=== PATIENT | female | born 1990 | race Two or more races ===

== ENCOUNTER 2017-12-06 15:20 | Outpatient (CLI) | payer OTHER | END 2017-12-06 15:30 | disposition home or self-care (01) | LOC: RAD 15:20 | DX: C50.911 Malignant neoplasm of unspecified site of right female breast (principal) ==

== ENCOUNTER 2017-12-23 06:29 | Inpatient (IN) | payer OTHER ==
[~2017-12-23] VITALS: Ht 160 cm; Wt 115.2 kg
[~2017-12-23 06:29] MED LIST: LOTREL 10-20 M1 EACH PO
== END 2017-12-24 13:15 | disposition home or self-care (01) | DRG 583 ==
LOC: CIR.AMB 06:29 → OB/GYN 17:30 → CIR.AMB 18:39 → OB/GYN 12-24 13:15
PROVIDERS: Plastic Surgery; Surgery
PROC: [UNRECOGNIZED PROCEDURE] (2017-12-23)
PROC: 0HTT0ZZ Resection of Right Breast, Open Approach (ICD-10-PCS; principal; 2017-12-23 11:30)
PROC: 0HHT0NZ Insertion of Tissue Expander into Right Breast, Open Approach (ICD-10-PCS; 2017-12-23 11:30)
DX: C50.011 Malignant neoplasm of nipple and areola, right female breast (principal); N62 Hypertrophy of breast; Z90.11 Acquired absence of right breast and nipple

== ENCOUNTER 2018-01-24 15:58 | Outpatient (CLI) | payer OTHER ==
[2018-02-02] MEDS ORDERED: LISINOPRIL-HCT1 EAC2 PO (12:30)
== END 2018-01-24 16:57 | disposition home or self-care (01) ==
LOC: EDBD 15:58 → NUCLEAR 15:58
DX: I87.2 Venous insufficiency (chronic) (peripheral) (principal)

== ENCOUNTER 2018-01-31 15:26 | Outpatient (CLI) | payer OTHER ==
[2018-02-02] MEDS ORDERED: LISINOPRIL-HCT1 EAC2 PO (12:30)
== END 2018-01-31 15:28 | disposition home or self-care (01) ==
LOC: EDBD 15:26 → EKG 15:26
DX: C50.911 Malignant neoplasm of unspecified site of right female breast (principal)

== ENCOUNTER 2018-01-31 15:53 | Outpatient (CLI) | payer OTHER ==
[2018-02-02] MEDS ORDERED: LISINOPRIL-HCT1 EAC2 PO (12:30)
== END 2018-01-31 15:55 | disposition home or self-care (01) ==
LOC: EDBD 15:53 → RAD 15:53
DX: S73.102A Unspecified sprain of left hip, initial encounter (principal)

== ENCOUNTER 2018-02-06 06:56 | Day surgery (SDC) | payer OTHER ==
[~2018-02-06 06:56] MED LIST changes: +LISINOPRIL-HCT1 EAC2 PO
== END 2018-02-06 14:40 | disposition home or self-care (01) ==
LOC: CIR.AMB 06:56
DX: N65.1 Disproportion of reconstructed breast (principal); Z90.11 Acquired absence of right breast and nipple